=== PATIENT | female | born 1970 | race Caucasian/White ===

== ENCOUNTER 2017-01-19 12:55 | Emergency (ER) | payer SELFPAY ==
--- NOTE | 2017-01-19 14:30 | ER Document Report ---
ED Skin Rash/Insect Bite/Abscs - General Chief Complaint: Rash Stated Complaint: POSSIBLE RASH Time Seen by Provider: 01/19/17 13:48 Mode of Arrival: Ambulatory Information source: Patient Notes: 46-year-old female presents to ED for complaint of rash for a couple of months. She states that her son was in group home came home with scabies. States she developed a rash soon after he came home. She states she has used over-the- counter medications and is not had any relief. She states that they itch at times but at other times they do not. She states she has been scratching multiple rash multiple times. TRAVEL OUTSIDE OF THE [place] IN LAST 30 DAYS: No - HPI Patient complains to provider of: Skin rash/lesion Onset: Other - A couple months not and getting better Onset/Duration: Gradual, Worse Quality of pain: No pain Severity: None Pain Level: Denies Skin Character: Erythema, Linear, Rash Quality of rash: Itchy - Times other times not itchy Identify cause: Yes - Son had scabies Exacerbated by: Denies Relieved by: Denies Similar symptoms previously: Yes Recently seen / treated by doctor: No - Related Data Allergies/Adverse Reactions: No Known Allergies Allergy (Verified 01/19/17 13:01) Past Medical History - General Information source: Patient - Social History Smoking Status: Current Every Day Smoker Cigarette use (# per day): Yes - Pack per day Chew tobacco use (# tins/day): No Smoking Education Provided: Yes - Less than 2 minutes Frequency of alcohol use: Rare Drug Abuse: None Occupation: None Lives with: Family Family History: Arthritis, CVA, DM, Hyperlipidemia, Hypertension, Malignancy. denies: CAD, COPD, Thyroid Disfunction Patient has suicidal ideation: No Patient has homicidal ideation: No - Past Medical History Cardiac Medical History: Reports: None Pulmonary Medical History: Reports: None EENT Medical History: Reports: None Neurological Medical History: Reports: None Endocrine Medical History: Reports: None Renal/ Medical History: Reports: None Malignancy Medical History: Reports: None GI Medical History: Reports: None Musculoskeltal Medical History: Reports Hx Musculoskeletal Trauma - Right knee Skin Medical History: Reports None Psychiatric Medical History: Reports: None Traumatic Medical History: Reports: None Infectious Medical History: Reports: None Past Surgical History: Reports: Hx Oral Surgery - Dental surgery, Hx Tubal Ligation Review of Systems - Review of Systems Constitutional: No symptoms reported EENT: No symptoms reported Cardiovascular: No symptoms reported Respiratory: No symptoms reported Gastrointestinal: No symptoms reported Genitourinary: No symptoms reported Female Genitourinary: No symptoms reported Musculoskeletal: No symptoms reported Skin: Lesions Hematologic/Lymphatic: No symptoms reported Neurological/Psychological: No symptoms reported Physical Exam - Vital signs Vitals: Temp Pulse Resp BP Pulse Ox 97.6 F 95 22 H 168/95 H 99 01/19/17 13:01 01/19/17 13:01 01/19/17 13:01 01/19/17 13:01 01/19/17 13:01 Interpretation: Normal - General General appearance: Appears well, Alert - HEENT Head: Normocephalic, Atraumatic Eyes: Normal Pupils: PERRL - Respiratory Respiratory status: No respiratory distress Chest status: Nontender Breath sounds: Normal Chest palpation: Normal - Cardiovascular Rhythm: Regular Heart sounds: Normal auscultation Murmur: No - Abdominal Inspection: Normal Distension: No distension Bowel sounds: Normal Tenderness: Nontender Organomegaly: No organomegaly - Back Back: Normal, Nontender - Extremities General upper extremity: Normal inspection, Nontender, Normal color, Normal ROM , Normal temperature General lower extremity: Normal inspection, Nontender, Normal color, Normal ROM , Normal temperature, Normal weight bearing. No: Jarad's sign - Neurological Neuro grossly intact: Yes Cognition: Normal Orientation: AAOx4 [place]ow[place] Coma Scale Eye Opening: Spontaneous [place] Coma Scale Verbal: Oriented [place] Coma Scale Motor: Obeys Commands Vowin[place]el Coma Scale Total: 15 Speech: Normal Motor strength normal: LUE, RUE, LLE, RLE Sensory: Normal - Psychological Associated symptoms: Normal affect, Normal mood - Skin Skin Temperature: Warm Skin Moisture: Dry Skin Color: Normal Location of irregularity: Generalized Character of irregularity: Maculopapular, Linear, Erythematous, Other - Some are maculopapules some our scabs where she has scratched them. Rashes is in many stages. Course - Re-evaluation Re-evalutation: 01/19/17 15:07 Patient was diagnosed with scabies and folliculitis and treated with permethrin and doxycycline. Patient was given instructions on housekeeping chores to be done in the morning after she has one the permethrin cream overnight. 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 Patient was given a refill on the permethrin. - Vital Signs Vital signs: Temp Pulse Resp BP Pulse Ox 98.0 F 89 18 158/80 H 100 01/19/17 14:40 01/19/17 14:40 01/19/17 14:40 01/19/17 14:40 01/19/17 14:40 Discharge - Discharge Clinical Impression: Scabies exposure, Scabies, Folliculitis Condition: Stable Disposition: HOME, SELF-CARE Instructions: Family Physicians / Practices Additional Instructions: Scabies Your exam suggests the presence of scabies, which are microscopic parasites of the skin. These mites zoraida through the skin, causing severe itching. The mite can be spread to other persons by skin contact. All clothing, towels, and bedding should be washed in very hot water, set aside for a week, then washed again. You should apply scabies-killing lotion from the neck down, then wash it off after 12 hours. You may need medication for itching, as the itch persists for many days after the mites have been killed. All family members and close personal contacts should be examined. Repeat treatment may be necessary if the infestation is not eliminated with a single treatment. Call the doctor if you develop increasing swelling and redness, red streaks , tender lumps, fever, or drainage from a skin sore. Folliculitis You have a skin infection called folliculitis. This occurs when bacteria infect the hair follicles of the skin. Typically, redness and small pustules are found where hair shafts enter the skin. Allergy, surface irritation, shaving, and exposure to hot tubs predispose to folliculitis. The usual treatment is antibiotic ointment, sometimes combined with cortisone-type medication. Warm compresses are often used. If the infection has moved deeper into the skin, oral antibiotics may be necessary. To avoid future episodes of folliculitis, you must identify (if possible) the factors which allowed this infection to start. If you develop increasing pain, swelling, fever, or red streaks, call the doctor or return for re-evaluation. Doxycycline Doxycycline (Vibramycin, Doryx) is an antibiotic of the tetracycline family. This type of drug is useful for infections of the respiratory tract and genital tract, and is sometimes used for intestinal infections. Unlike most tetracyclines, doxycycline can be taken with food. It is longer acting, and (usually) less prone to side effects than regular tetracycline. Tetracycline antibiotics can stain immature teeth and SHOULD NOT BE TAKEN BY CHILDREN, NURSING MOTHERS, OR WOMEN. Tetracyclines can make you more prone to sunburn. Abdominal cramping, nausea, and diarrhea are occasional side effects. Women may experience vaginal yeast infections. Call the doctor at once if you develop hives, itching, shortness of breath , or lightheadedness. Diphenhydramine The use of diphenhydramine (Benadryl) has been recommended to control allergic symptoms. The 25 mg strength is available over- the-counter, as well as the elixir. This antihistamine is used for many symptoms. It's useful for itching, watering eyes and nose, allergic swelling, hives, and insect stings. The medication can be repeated four times daily. Age Elixir (12.5 mg/tsp) 25 mg pill 1 yr 1/4 tsp 2-3 yr 1/2 tsp 4-8 yr 1 tsp 9-14 yr 2 tsp one tab adult 1-2 tabs Antihistamines may cause drowsiness, especially with the first dose. Do not operate machinery or drive while under the effects of the medication. Do not combine the medication with alcohol, or with any other medication without talking to your doctor. FOLLOW-UP CARE: If you have been referred to a physician for follow-up care, call the physician s office for an appointment as you were instructed or within the next two days. If you experience worsening or a significant change in your symptoms, notify the physician immediately or return to the Emergency Department at any time for re-evaluation. Prescriptions: Doxycycline Hyclate 100 mg PO BID #20 tablet Permethrin [Elimite] 60 gm TP ONCE PRN #1 cream..g. PRN Reason: Forms: Elevated Blood Pressure, Smoking Cessation Education
[2017-01-19 14:46] VITALS: BP 158/80
== END 2017-01-19 14:43 | disposition home or self-care (01) ==
LOC: ER 12:55
DX: B86 Scabies (principal); L73.9 Follicular disorder, unspecified; F17.210 Nicotine dependence, cigarettes, uncomplicated; Z71.6 Tobacco abuse counseling
CPT/HCPCS: 99282

== ENCOUNTER 2017-12-14 18:46 | Emergency (ER) | payer SELFPAY ==
--- NOTE | 2017-12-14 19:21 | ER Document Report ---
ED Medical Screen (RME) - General Chief Complaint: Leg Swelling Stated Complaint: FEET/LEG SWELLING, SHORTNESS OF BREATH Time Seen by Provider: 12/14/17 19:10 Mode of Arrival: Ambulatory Information source: Patient, Relative Notes: 47-year-old female with no reported past medical history presents with complaint of leg swelling, shortness of breath, nausea. Patient states that she has noticed swelling in both of her legs for the last 10 days. She states that recently the left leg has become more painful and swollen. Patient describes shortness of breath with exertion, laying flat. Patient denies prior history of PE, DVT. She does not have any primary care at this time. I have greeted and performed a rapid initial assessment of this patient. A comprehensive ED assessment and evaluation of the patient, analysis of test results and completion of medical decision making process we will be contacted by additional ED providers. General; morbidly obese, no acute distress Respiratory; no respiratory distress Musculoskeletal; bilateral pitting edema, tenderness with palpation to the left calf with associated erythema, swelling. Skin; multiple scabbed lesions of the lower extremities TRAVEL OUTSIDE OF THE [place] IN LAST 30 DAYS: No - HPI Onset: Last week Quality of pain: Throbbing Severity: Moderate Associated Symptoms: Nausea, Shortness of breath Exacerbated by: Movement Relieved by: Denies Similar symptoms previously: No Recently seen / treated by doctor: No - Related Data Smoking: Non-smoker Frequency of alcohol use: None Drug Abuse: None Allergies/Adverse Reactions: No Known Allergies Allergy (Verified 12/14/17 18:51) Past Medical History - Social History Chew tobacco use (# tins/day): No Frequency of alcohol use: Occasional Drug Abuse: None Renal/ Medical History: Denies: Hx Peritoneal Dialysis Musculoskeltal Medical History: Reports Hx Musculoskeletal Trauma - Right knee Past Surgical History: Reports: Hx Oral Surgery - Dental surgery, Hx Tubal Ligation Physical Exam - Vital signs Vitals: Temp Pulse Resp BP Pulse Ox 98.2 F 101 H 22 H 149/79 H 97 12/14/17 18:58 12/14/17 18:58 12/14/17 18:58 12/14/17 18:58 12/14/17 18:58 Course - Vital Signs Vital signs: Temp Pulse Resp BP Pulse Ox 98.2 F 101 H 22 H 149/79 H 97 12/14/17 18:58 12/14/17 18:58 12/14/17 18:58 12/14/17 18:58 12/14/17 18:58
--- NOTE | 2017-12-14 20:10 | RADIOLOGY REPORT (SQ) ---
EXAM DESCRIPTION: CHEST SINGLE VIEW COMPLETED DATE/TIME: 12/14/2017 7:39 pm REASON FOR STUDY: sob COMPARISON: None. EXAM PARAMETERS: NUMBER OF VIEWS: One view. TECHNIQUE: Single frontal radiographic view of the chest acquired. RADIATION DOSE: NA LIMITATIONS: None. FINDINGS: LUNGS AND PLEURA: No opacities, masses or pneumothorax. No pleural effusion. MEDIASTINUM AND HILAR STRUCTURES: No masses. Contour normal. HEART AND VASCULAR STRUCTURES: Heart normal in size. Normal vasculature. BONES: No acute findings. HARDWARE: None in the chest. OTHER: No other significant finding. IMPRESSION: NO ACUTE RADIOGRAPHIC FINDING IN THE CHEST. TECHNICAL DOCUMENTATION: JOB ID: [id number] [employer]- All Rights Reserved Reading location - IP/workstation name: [email or web address]
[2017-12-14 20:14] LABS: ABSOLUTE BASOPHILS # (AUTO) 0.1 10^3/uL (0.0-0.2); ABSOLUTE EOSINOPHILS # (AUTO) 0.3 10^3/uL (0.0-0.6); ABSOLUTE LYMPHOCYTES (AUTO) 2.3 10^3/uL (0.5-4.7); ABSOLUTE MONOCYTES (AUTO) 0.5 10^3/uL (0.1-1.4); ABSOLUTE NEUT (AUTO) 7.5 10^3/uL (1.7-8.2); BASOPHILS % (AUTO) 0.5 % (0-2); EOSINOPHILS % (AUTO) 2.7 % (0-6); HEMATOCRIT 39.5 % (36.0-47.0); HEMOGLOBIN 12.9 g/dL (12.0-15.5); LYMPHOCYTES % (AUTO) 21.7 % (13-45); MEAN CORPUSCULAR HEMOGLOBIN 24.5 pg (27.0-33.4); MEAN CORPUSCULAR HGB CONC 32.7 g/dL (32.0-36.0); MEAN CORPUSCULAR VOLUME 75 fl (80-97); MONOCYTES % (AUTO) 4.7 % (3-13); PLATELET COUNT 418 10^3/uL (150-450); RED BLOOD COUNT 5.29 10^6/uL (3.72-5.28); RED CELL DISTRIBUTION WIDTH 18.2 % (11.5-14.0); SEGMENTED NEUTROPHILS % (AUTO) 70.4 % (42-78); TOTAL CELLS COUNTED % (AUTO) 100 %; WHITE BLOOD COUNT 10.7 10^3/uL (4.0-10.5)
[2017-12-14 20:15] LABS: APPEARANCE,URINE CLOUDY; BILIRUBIN,URINE NEGATIVE (NEGATIVE); COLOR,URINE DARK YELLOW; GLUCOSE, URINE NEGATIVE (NEGATIVE); KETONES,URINE NEGATIVE (NEGATIVE); LEUKOCYTE ESTERASE,URINE SMALL (NEGATIVE); NITRITE,URINE NEGATIVE (NEGATIVE); PROTEIN,URINE 30 mg/dL (NEGATIVE); URINE SPECIFIC GRAVITY 1.019
[2017-12-14 20:24] LABS: ALANINE AMINOTRANSFERASE 147 U/L (9-52); ALKALINE PHOSPHATASE 263 U/L (38-126); ANION GAP 13 (5-19); ASPARTATE AMINO TRANSFERASE 93 U/L (14-36); BILIRUBIN,DIRECT 0.5 mg/dL (0.0-0.4); BILIRUBIN,TOTAL 0.6 mg/dL (0.2-1.3); BLOOD UREA NITROGEN 12 mg/dL (7-20); CALCIUM 9.6 mg/dL (8.4-10.2); CARBON DIOXIDE 26 mmol/L (22-30); CHLORIDE 103 mmol/L (98-107); GLUCOSE 111 mg/dL (75-110); TOTAL PROTEIN 8.5 g/dL (6.3-8.2)
--- NOTE | 2017-12-14 21:16 | EKG REPORT ---
SEVERITY:- NORMAL ECG - SINUS RHYTHM : Confirmed by: Dajuan Lewis MD 14-Dec-2017 21:15:50
[2017-12-14 23:13] VITALS: BP 155/95
--- NOTE | 2017-12-14 23:23 | ER Document Report ---
ED General - General Chief Complaint: Leg Swelling Stated Complaint: FEET/LEG SWELLING, SHORTNESS OF BREATH Time Seen by Provider: 12/14/17 19:10 Mode of Arrival: Ambulatory Notes: Patient is a 47-year-old female who presents with chief complaint of bilateral leg swelling and redness to her left leg. Patient reports this is been ongoing for several weeks however has worsened over the last 2 days. Patient has also had some shortness of breath but denies any chest pain. Patient reports she has not seen a doctor in approximately 2 years due to a lack of insurance. Patient speaking in full and complete sentences and does not appear to be in any acute distress. Patient denies any nausea, vomiting, diarrhea or fevers. TRAVEL OUTSIDE OF THE [place] IN LAST 30 DAYS: No - Related Data Allergies/Adverse Reactions: No Known Allergies Allergy (Verified 12/14/17 18:51) Past Medical History - General Information source: Patient, Relative - Social History Smoking Status: Current Every Day Smoker Chew tobacco use (# tins/day): No Frequency of alcohol use: Occasional Drug Abuse: None Family History: Arthritis, CVA, DM, Hyperlipidemia, Hypertension, Malignancy. denies: CAD, COPD, Thyroid Disfunction Patient has suicidal ideation: No Patient has homicidal ideation: No Renal/ Medical History: Denies: Hx Peritoneal Dialysis Musculoskeletal Medical History: Reports Hx Musculoskeletal Trauma - Right knee Past Surgical History: Reports: Hx Section, Hx Oral Surgery - Dental surgery, Hx Tubal Ligation Review of Systems - Review of Systems Constitutional: No symptoms reported EENT: No symptoms reported Cardiovascular: Dyspnea, Edema Respiratory: No symptoms reported Gastrointestinal: No symptoms reported Genitourinary: No symptoms reported Female Genitourinary: No symptoms reported Musculoskeletal: See HPI Skin: See HPI Hematologic/Lymphatic: No symptoms reported Neurological/Psychological: No symptoms reported Physical Exam - Vital signs Vitals: Temp Pulse Resp BP Pulse Ox 98.2 F 101 H 22 H 149/79 H 97 12/14/17 18:58 12/14/17 18:58 12/14/17 18:58 12/14/17 18:58 12/14/17 18:58 - Notes Notes: PHYSICAL EXAMINATION: GENERAL: Well-appearing, well-nourished and in no acute distress. HEAD: Atraumatic, normocephalic. EYES: Pupils equal round and reactive to light, extraocular movements intact, conjunctiva are normal. ENT: Nares patent, oropharynx clear without exudates. Moist mucous membranes. NECK: Normal range of motion, supple without lymphadenopathy LUNGS: Breath sounds clear to auscultation bilaterally and equal. No wheezes rales or rhonchi. HEART: Regular rate and rhythm without murmurs ABDOMEN: Soft, nontender, nondistended abdomen. No guarding, no rebound. No masses appreciated. Female : deferred Musculoskeletal: Normal range of motion No cyanosis. Edema noted to patient's bilateral lower extremities, redness and edema noted to left lower extremity, nonpitting. NEUROLOGICAL: Cranial nerves grossly intact. Normal speech, normal gait. Normal sensory, motor exams PSYCH: Normal mood, normal affect. SKIN: Warm, Dry, normal turgor, no rashes or lesions noted. Course - Re-evaluation Re-evalutation: CBC is unremarkable. CMP reveals elevated AST, ALT and alk phos. BNP is within normal limits. Chest x-ray is negative, venous Doppler is negative for any DVT or SVT. Patient given outpatient resources for follow-up, patient requesting to be discharged home at this time. Patient reports that she has had elevated liver enzymes in the past, reports she will follow up with primary care regarding these findings. I did offer patient a right upper quadrant ultrasound which she declined. Patient encouraged to return to the emergency department if she develops any fever, abdominal pain, nausea, vomiting or diarrhea. - Vital Signs Vital signs: Temp Pulse Resp BP Pulse Ox 98 F 101 H 22 H 155/95 H 96 12/14/17 23:13 12/14/17 18:58 12/14/17 23:09 12/14/17 23:09 12/14/17 23:09 - Laboratory Result Diagrams: 12/14/17 20:00 12/14/17 20:00 Laboratory results interpreted by me: 12/14/17 12/14/17 12/14/17 20:00 20:00 20:00 WBC 10.7 H RBC 5.29 H MCV 75 L MCH 24.5 L RDW 18.2 H Glucose 111 H Direct Bilirubin 0.5 H AST 93 H ALT 147 H Alkaline Phosphatase 263 H Total Protein 8.5 H Urine Protein 30 H Urine Blood MODERATE H Urine Urobilinogen 4.0 H Ur Leukocyte Esterase SMALL H Discharge - Discharge Clinical Impression: Elevated liver enzymes, Swelling of lower extremity Condition: Stable Disposition: HOME, SELF-CARE Additional Instructions: Please follow-up with your primary care provider regarding today's lab results. Your liver enzymes are elevated. The ultrasound done of your leg does not show any evidence of any blood clot. If you continue to have pain and/or swelling please have a another ultrasound done in 1-2 weeks. Your primary care provider can also order this. If you develop any worsening symptoms, shortness of breath or chest pain please present to the emergency department, we are happy to reevaluate you at any time. Referrals: [facility] [Provider Group] - Follow up as needed
--- NOTE | 2017-12-15 08:51 | XCELERA REPORT ---
[address] [facility] [address] Lower Extremity Venous Evaluation Procedure: Color flow and duplex imaging of the veins of the left lower extremity as well as the right Common Femoral vein. Right Sided Venous Evaluation The right common femoral vein is fully compressible. Spontaneous and phasic flow is present in the right common femoral vein. Left Sided Venous Evaluation Normal vessel filling wall to wall, compression and augmentation as well as Colour flow down to the infrageniculate veins. Interpretation Summary No duplex evidence of DVT or obstruction in the left lower extremity nor in the right Common Femoral vein. Name: RENETTA DYER Age: 47 yrs Gender: Female : 1970 Patient Status: Preadmit Patient Location: ER Study Date: 12/14/2017 08:25 PM Reason For Study: LLE pain and swelling Ordering Physician: SHEA FRY Performed By: Celia Arreaga : SHEA FRY > Vernno Chaney
== END 2017-12-14 23:35 | disposition home or self-care (01) ==
LOC: ER 18:46
DX: M79.89 Other specified soft tissue disorders (principal); R74.8 Abnormal levels of other serum enzymes; L53.9 Erythematous condition, unspecified; R60.9 Edema, unspecified; R06.02 Shortness of breath; F17.200 Nicotine dependence, unspecified, uncomplicated
CPT/HCPCS: 36415; 71045; 80053; 81001; 83880; 85025; 93005; 93010; 93971; 99284